=== PATIENT | female | born 1970 | race Caucasian/White ===

== ENCOUNTER 2020-11-21 05:24 | Emergency (ER) | payer OTHER ==
[~2020-11-21] VITALS: Ht 168 cm; Wt 84.0 kg
[2020-11-21 05:40] VITALS: BP 135/86
--- NOTE | 2020-11-21 05:53 | ED Integumentary General ---
General Stated Complaint: POSS BLOOD POISONING Source: patient (SPEECH IS VERY RAPID AND ERRATIC) History of Present Illness Date Seen by Provider: Nov 21, 2020 Time Seen by Provider: 05:44 Initial Comments PT ARRIVES VIA POV FROM HOME PT STATES "I'VE BEEN PICKING INSULATION OUT OF MY HANDS FOR 9 MONTHS" STATES "IF I SQUEEZE ON MY HANDS THESE LITTLE BLACK DOTS SHOW UP" ALSO C/O SIMILAR ON HER LEGS AND FEET SYMPTOMS NO DIFFERENT TO DAY HAS NOT SOUGHT CARE UNTIL TODAY [facility] Allergies Coded Allergies: No Known Drug Allergies (Unverified , 11/21/20) Patient Home Medication List Home Medication List Reviewed: Yes Review of Systems Review of Systems Constitutional: no symptoms reported Skin: see HPI Psychiatric/Neurological: Anxiety Past [id number]-[id number] Hx Past Medical History Endocrine: Yes Diabetes, Non-Insulin dep Physical Exam Vital Signs Vital Signs - First Documented 11/21/20 05:40 Temp 36.0 Pulse 116 Resp 18 B/P (MAP) 135/86 (102) Pulse Ox 99 O2 Delivery Room Air Capillary Refill : General Appearance: WD/WN, other (PT ANXIOUS, SPEECH IS RAPID AND ERRATIC. PT IS CONSTANTLY SQUEEZING AND "MILKING" HANDS AND FINGERS. ) Extremities: other ("BLACK SPOTS" ON HANDS AND FEET AND ANKLES ARE TAPE RESIDUE, ANIMAL HAIR, AND DIRT--ALL WHICH ARE EASILY REMOVED WITH ALCOHOL WIPE. PT WITH STRONG PULSES +3/4 BILATERAL FEET--POSTERIOR TIBIAL AND DORSALIS PEDIS. ALL TOES ARE COOL AND DUSKY. THERE ARE NO OPEN WOUNDS OR LESIONS ON HANDS OR FEET ) Progress/Results/Core Measures Results/Orders Vital Signs/I&O 11/21/20 05:40 Temp 36.0 Pulse 116 Resp 18 B/P (MAP) 135/86 (102) Pulse Ox 99 O2 Delivery Room Air Progress Progress Note : Progress Note PT ADMITS TO PUTTING TAPE ON FINGERS, HANDS AND FEET--CONSISTENT WITH FINDINGS OF TAPE RESIDUE TO THESE AREAS PT IS UNWILLING TO BELIEVE THAT THESE "BLACK SPOTS" ARE TAPE OR DIRT OR ANIMAL HAIR. Departure Impression Primary Impression: Psychogenic skin symptoms Disposition: 01 HOME, SELF-CARE Condition: Stable Departure-Patient Inst. Referrals: [facility] (PCP/Family) Primary Care Physician Patient Instructions: NO INSTRUCTIONS GIVEN Add. Discharge Instructions: FOLLOW UP WITH [facility] FOR FURTHER CARE BILL YATES DO Nov 21, 2020 05:53
== END 2020-11-21 06:02 | disposition home or self-care (01) ==
LOC: EDBD 05:31 → ER 05:31
DX: F45.9 Somatoform disorder, unspecified (principal); E11.9 Type 2 diabetes mellitus without complications
CPT/HCPCS: 99281

== ENCOUNTER 2021-03-09 05:39 | Outpatient (CLI) | payer OTHER ==
[~2021-03-09] VITALS: Ht 167.6 cm; Wt 89.4 kg
[2021-03-09] MEDS ORDERED: METF-397 PO (13:10)
[2021-03-09] MEDS ORDERED: FLUT9.9S NS (13:10)
[2021-03-09] MEDS ORDERED: MONT10TA21 PO (13:10)
== END 2021-03-09 16:30 | disposition home or self-care (01) ==
LOC: PREOP 05:39
PROVIDERS: ATTEND Surgery
DX: Z01.818 Encounter for other preprocedural examination (principal)

== ENCOUNTER 2021-03-16 08:48 | Day surgery (SDC) | payer OTHER ==
[2021-03-16] VITALS (7 sets, daily range): BP systolic 97–123; BP diastolic 64–76
[~2021-03-16] VITALS: Ht 167.6 cm; Wt 89.5 kg
[~2021-03-16 08:48] MED LIST: FLUT9.9S NS; METF-397 PO; MONT10TA21 PO
[2021-03-16] MEDS ORDERED: LACTATED RINGERS 1,000 ML IV STA (08:50)
[2021-03-16] MEDS ORDERED: LACTATED RINGERS 1,000 ML IV ONE (08:52)
[2021-03-16] MEDS ORDERED: PROPOFOL INJECTION 50 ML IV ONE ×2 (09:32→10:05)
[2021-03-16] MEDS ORDERED: MIDAZOLAM 2 MG/2 ML (VERSED) VIAL ONE (09:32)
--- NOTE | 2021-03-16 10:34 | Progress Note-Post Operative ---
Post-Operative Progess Note Surgeon (s)/Bead Flipper (s) Surgeon TRINA VALENCIA DO Bead Flipper: MEEK WrightII Pre-Operative Diagnosis Screening Post-Operative Diagnosis Polyps Diverticula hemorrhoids Procedure & Operative Findings Date of Procedure 03/16/21 Procedure Performed/Findings Colonoscopy with snare Polypectomy PROCEDURE NOTE: After informed consent was obtained, the patient was brought to the endoscopy suite, placed in bed in left lateral decubitus position. She was administered IV sedation by the METAL STUD FRAMER who then monitored her vitals the entire time, heart rate, blood pressure and pulse ox and the scope was inserted, pushed all the way to about 140 cm and pushed into the cecum, took a picture of appendiceal orifice and then slowly withdrew the scope insufflating to look circumferentially at the moya. Starting in the cecum; where I found a polyp and did a snare polypectomy. Then up the ascending colon where I saw another polyp unable to get a piece so I cauterized it. Up to the hepatic flexure and then down the transverse colon to the splenic flexure. Into the descending colon where I saw another polyp and able to remove it with snare polypectomy. Finally down into the sigmoid and then into the rectal vault and retroflexed the scope. Took picture of the internal hemorrhoids. I saw diverticula on the left and right side of colon, took pictures of this as well. The patient tolerated the procedure. She was recovered in endoscopy suite. Anesthesia Type IV sedation by METAL STUD FRAMER Estimated Blood Loss Estimated blood loss (mL): scant Specimens/Packing Specimens Removed cecal polyp descending colon polyp TRINA VALENCIA DO Mar 16, 2021 10:34
--- NOTE | 2021-03-16 10:38 | Endoscopy Discharge Instruct ---
Endo Procedure/Findings Findings 1.: Polyp 2.: Diverticulosis 3.: Internal Hemorrhoids Discharge Instructions - Activity: You might feel a little sleepy until tomorrow. This is due to the medicine you received to relax you. Until tomorrow, you should: NOT drive a car, operate machinery or power tools. NOT drink any alcoholic beverages. NOT make any important decisions or sign importortant papers. Do not return to work until tomorrow, unless otherwise instructed. Resume previous activities tomorrow. Diet: Start by taking liquids. If you tolerate liquids, advance to solid food. 1.: Colonscopy in 5 years Notify Physician - If you experience excessive bleeding, unusual abdominal pain, fever, or chest pain, contact your doctor immediately. TRINA VALENCIA DO Mar 16, 2021 10:38
--- NOTE | 2021-03-16 12:44 | Anesthesia-General Post-Op ---
MAC Patient Condition Mental Status/LOC: Same as Preop Cardiovascular: Satisfactory Nausea/Vomiting: Absent Respiratory: Satisfactory Pain: Controlled Complications: Absent Post Op Complications Complications None Follow Up Care/Instructions Patient Instructions None needed. Anesthesiology Discharge Order Discharge Order Patient is doing well, no complaints, stable vital signs, no apparent adverse anesthesia problems. No complications reported per nursing. PEDRO CAMPO CRNA Mar 16, 2021 12:44
== END 2021-03-16 10:55 | disposition home or self-care (01) ==
LOC: ENDO 08:48
PROVIDERS: ATTEND Surgery
DX: Z12.11 Encounter for screening for malignant neoplasm of colon (principal); D12.0 Benign neoplasm of cecum; D12.4 Benign neoplasm of descending colon; F41.9 Anxiety disorder, unspecified; F32.A Depression, unspecified; R73.03 Prediabetes; F90.9 Attention-deficit hyperactivity disorder, unspecified type; H91.90 Unspecified hearing loss, unspecified ear; F17.210 Nicotine dependence, cigarettes, uncomplicated; Z79.899 Other long term (current) drug therapy; Z79.84 Long term (current) use of oral hypoglycemic drugs; Z80.0 Family history of malignant neoplasm of digestive organs
CPT/HCPCS: 82947